=== PATIENT | male | born 1995 | race African-American/Black ===

== ENCOUNTER 2022-02-02 11:44 | Emergency (ER) | payer MEDICAID ==
[~2022-02-02] VITALS: Ht 182.9 cm; Wt 105.0 kg
[2022-02-02] MEDS ORDERED: BO1 TP (15:18)
[2022-02-02] MEDS ORDERED: CEPH500T MT (15:18)
[2022-02-02 15:38] VITALS: BP 136/75
== END 2022-02-02 15:41 | disposition home or self-care (01) ==
LOC: ER 11:44
DX: S30.812A Abrasion of penis, initial encounter (principal); X58.XXXA Exposure to other specified factors, initial encounter; Y93.9 Activity, unspecified; Y92.9 Unspecified place or not applicable
CPT/HCPCS: 99283